=== PATIENT | female | born 1960 | race Caucasian/White ===

== ENCOUNTER 2017-02-14 09:39 | Outpatient (RCR) | payer OTHER ==
[~2017-02-14 09:39] MED LIST: ASPIRIN 32325 MG/TAB PO; BLOOD PRESSURE MED; FORTAMET500 MG PO; PEPCID 20MG TAB20 MG PO
== END 2017-03-13 10:06 | disposition still patient (30) ==
LOC: WSOH 09:39
DX: S57.81XA Crushing injury of right forearm, initial encounter (principal); W23.0XXA Caught, crushed, jammed, or pinched between moving objects, initial encounter; Y99.0 Civilian activity done for income or pay; Z79.84 Long term (current) use of oral hypoglycemic drugs; Z79.52 Long term (current) use of systemic steroids

== ENCOUNTER → 2017-04-10 | Outpatient (CLI) | payer BC | LOC: MHCPAIN 13:54 | DX: G89.29 Other chronic pain (principal); M47.817 Spondylosis without myelopathy or radiculopathy, lumbosacral region; M53.3 Sacrococcygeal disorders, not elsewhere classified; F17.210 Nicotine dependence, cigarettes, uncomplicated | CPT/HCPCS: G0463 ==

== ENCOUNTER → 2017-04-25 | Outpatient (CLI) | payer BC | LOC: MHCPAIN 07:58 | DX: M47.817 Spondylosis without myelopathy or radiculopathy, lumbosacral region (principal); M46.97 Unspecified inflammatory spondylopathy, lumbosacral region ==

== ENCOUNTER → 2017-04-29 | Outpatient (CLI) | payer BC | LOC: COL.CARD 13:57 | DX: Z01.818 Encounter for other preprocedural examination (principal); E21.3 Hyperparathyroidism, unspecified ==

== ENCOUNTER → 2017-05-01 | Outpatient (CLI) | payer BC | LOC: MHCPAIN 08:33 | DX: G89.29 Other chronic pain (principal); M47.27 Other spondylosis with radiculopathy, lumbosacral region; M53.3 Sacrococcygeal disorders, not elsewhere classified; F17.210 Nicotine dependence, cigarettes, uncomplicated | CPT/HCPCS: G0463 ==

== ENCOUNTER → 2017-06-12 | Outpatient (CLI) | payer BC, OTHER | LOC: MHCPAIN 13:44 | DX: G89.29 Other chronic pain (principal); M47.27 Other spondylosis with radiculopathy, lumbosacral region; M53.3 Sacrococcygeal disorders, not elsewhere classified; F17.210 Nicotine dependence, cigarettes, uncomplicated | CPT/HCPCS: G0463 ==

== ENCOUNTER → 2017-06-13 | Outpatient (CLI) | payer BC, OTHER | LOC: MHCPAIN 13:42 | DX: M47.817 Spondylosis without myelopathy or radiculopathy, lumbosacral region (principal) | CPT/HCPCS: J2250; J3010 ==

== ENCOUNTER → 2017-06-14 | Outpatient (CLI) | payer BC, OTHER | LOC: COL.RAD 09:00 | DX: M25.571 Pain in right ankle and joints of right foot (principal) | CPT/HCPCS: J3301; Q9967 ==

== ENCOUNTER → 2017-06-20 | Outpatient (CLI) | payer BC | LOC: MHCPAIN 13:42 | DX: M47.817 Spondylosis without myelopathy or radiculopathy, lumbosacral region (principal) | CPT/HCPCS: J2250; J3010 ==

== ENCOUNTER → 2017-08-19 | Outpatient (CLI) | payer BC | LOC: MHCPAIN 13:52 | DX: G89.29 Other chronic pain (principal); M47.817 Spondylosis without myelopathy or radiculopathy, lumbosacral region; M53.3 Sacrococcygeal disorders, not elsewhere classified; F17.210 Nicotine dependence, cigarettes, uncomplicated | CPT/HCPCS: G0463 ==

== ENCOUNTER → 2017-08-29 | Outpatient (CLI) | payer BC, OTHER | LOC: MHCPAIN 10:54 | DX: M53.3 Sacrococcygeal disorders, not elsewhere classified (principal) | CPT/HCPCS: G0260; J1040; Q9967 ==

== ENCOUNTER → 2017-10-09 | Outpatient (CLI) | payer BC, OTHER | LOC: SUN.DIA 13:48 | DX: E11.9 Type 2 diabetes mellitus without complications (principal); E78.5 Hyperlipidemia, unspecified; E66.9 Obesity, unspecified; Z68.37 Body mass index [BMI] 37.0-37.9, adult; Z71.3 Dietary counseling and surveillance; F17.210 Nicotine dependence, cigarettes, uncomplicated | CPT/HCPCS: G0108 ==

== ENCOUNTER → 2017-11-09 | Outpatient (REF) | LOC: ZLAB.WCH 12:06 | DX: Z01.89 Encounter for other specified special examinations (principal) ==

== ENCOUNTER → 2017-11-29 | Outpatient (CLI) | payer BC | LOC: MHCPAIN 11:23 | DX: G89.29 Other chronic pain (principal); M47.817 Spondylosis without myelopathy or radiculopathy, lumbosacral region; M54.16 Radiculopathy, lumbar region; M53.3 Sacrococcygeal disorders, not elsewhere classified | CPT/HCPCS: G0463 ==

== ENCOUNTER → 2017-12-12 | Outpatient (CLI) | payer BC | LOC: MHCPAIN 12:58 | DX: M53.3 Sacrococcygeal disorders, not elsewhere classified (principal) | CPT/HCPCS: G0260; J1040; Q9967 ==

== ENCOUNTER → 2018-04-17 | Outpatient (CLI) | payer BC | LOC: MHCPAIN 09:29 | DX: M47.817 Spondylosis without myelopathy or radiculopathy, lumbosacral region (principal); M54.16 Radiculopathy, lumbar region ==

== ENCOUNTER → 2018-04-24 | Outpatient (CLI) | payer BC | LOC: MHCPAIN 09:12 | DX: M47.817 Spondylosis without myelopathy or radiculopathy, lumbosacral region (principal); M54.16 Radiculopathy, lumbar region | CPT/HCPCS: G0463; J1100; J2250; J3010 ==

== ENCOUNTER → 2018-04-28 | Outpatient (CLI) | payer BC | LOC: MHCPAIN 10:47 | DX: M47.817 Spondylosis without myelopathy or radiculopathy, lumbosacral region (principal); M54.16 Radiculopathy, lumbar region | CPT/HCPCS: J2250; J3010 ==

== ENCOUNTER → 2018-10-31 | Outpatient (REF) | LOC: ZLAB.WCH 15:37 | DX: Z01.89 Encounter for other specified special examinations (principal) ==

== ENCOUNTER → 2020-08-24 | Outpatient (CLI) | payer OTHER | LOC: MHCPAIN 08:49 | DX: M47.816 Spondylosis without myelopathy or radiculopathy, lumbar region (principal); M53.3 Sacrococcygeal disorders, not elsewhere classified; G89.29 Other chronic pain; E11.9 Type 2 diabetes mellitus without complications; Z79.4 Long term (current) use of insulin | CPT/HCPCS: G0463 ==

== ENCOUNTER 2020-12-02 10:30 | Outpatient (RCR) | payer SELFPAY | END 2020-12-02 12:12 | disposition home or self-care (01) | LOC: WSC 10:30 | DX: M47.896 Other spondylosis, lumbar region (principal) ==

== ENCOUNTER → 2021-03-28 | Outpatient (CLI) | payer SELFPAY | LOC: COL.RAD 11:06 | DX: Z02.71 Encounter for disability determination (principal); M43.8X6 Other specified deforming dorsopathies, lumbar region; M47.816 Spondylosis without myelopathy or radiculopathy, lumbar region; M48.07 Spinal stenosis, lumbosacral region ==

== ENCOUNTER → 2021-06-19 | Outpatient (CLI) | payer MEDICAID | LOC: MHCPAIN 09:44 | DX: M47.817 Spondylosis without myelopathy or radiculopathy, lumbosacral region (principal); M54.50 Low back pain, unspecified; M53.3 Sacrococcygeal disorders, not elsewhere classified | CPT/HCPCS: G0463 ==

== ENCOUNTER → 2021-07-06 | Outpatient (CLI) | payer MEDICAID | LOC: MHCPAIN 07:44 | DX: M47.817 Spondylosis without myelopathy or radiculopathy, lumbosacral region (principal); M54.50 Low back pain, unspecified; M53.3 Sacrococcygeal disorders, not elsewhere classified ==

== ENCOUNTER → 2021-08-03 | Outpatient (CLI) | payer MEDICAID | LOC: MHCPAIN 10:11 | DX: M47.817 Spondylosis without myelopathy or radiculopathy, lumbosacral region (principal); M54.50 Low back pain, unspecified; M53.3 Sacrococcygeal disorders, not elsewhere classified | CPT/HCPCS: J2250; J3010 ==

== ENCOUNTER → 2021-09-26 | Outpatient (CLI) | payer MEDICAID | LOC: MHCPAIN 09:10 | DX: M53.3 Sacrococcygeal disorders, not elsewhere classified (principal); M54.50 Low back pain, unspecified; E11.65 Type 2 diabetes mellitus with hyperglycemia; Z79.4 Long term (current) use of insulin | CPT/HCPCS: G0463 ==

== ENCOUNTER → 2022-01-02 | Outpatient (CLI) | payer MEDICAID | LOC: MHCPAIN 09:51 | DX: M54.50 Low back pain, unspecified (principal); M53.3 Sacrococcygeal disorders, not elsewhere classified; E11.9 Type 2 diabetes mellitus without complications; Z79.4 Long term (current) use of insulin | CPT/HCPCS: G0463 ==

== ENCOUNTER → 2023-02-19 | Outpatient (CLI) | payer MEDICAID, MEDICARE | LOC: COL.RAD 07:47 | DX: K21.9 Gastro-esophageal reflux disease without esophagitis (principal) | CPT/HCPCS: A9541-JZ ==

== ENCOUNTER → 2023-02-20 | Outpatient (CLI) | payer MEDICARE, MEDICAID | LOC: COL.RAD 10:06 | DX: K21.9 Gastro-esophageal reflux disease without esophagitis (principal) ==

== ENCOUNTER 2023-03-14 15:43 | Inpatient (IN) | payer MEDICARE, MEDICAID ==
[2023-03-14] VITALS (228 sets, daily range): BP systolic 76–109; BP diastolic 47–86; PULSE 78–142; TEMP 97.7; O2SAT 87–98
[~2023-03-14] VITALS: Ht 162.6 cm; Wt 92.2 kg
[2023-03-14 17:18] LABS: BASO # 0.1 K/mm3 (0.0-0.2); BASO % 0.8 % (0.0-2.0); EOS # 0.1 K/mm3 (0.0-0.7); EOS % 0.9 % (0.0-4.0); GRAN # 8.2 K/mm3 (1.4-6.5); HEMATOCRIT 48.6 % (37.0-47.0); HEMOGLOBIN 16.5 g/dl (12.5-16.0); LYMPH # 4.1 K/mm3 (1.2-3.4); LYMPH % 30.5 % (20.0-51.0); MEAN CELL VOLUME 91 fl (80.0-100.0); MEAN CORPUSCULAR HEMOGLOBIN 31 pg (27-31); MEAN CORPUSCULAR HGB CONC 34 g/dl (33.0-37.0); MEAN PLATELET VOLUME 10.3 fl (7.4-10.4); MONO # 0.7 K/mm3 (0.1-0.6); MONO % 5.3 % (1.7-9.3); PLATELET COUNT 344 K/mm3 (130-400); RED BLOOD COUNT 5.37 M/mm3 (4.10-5.30); REDCELL DISTRIBUTION WIDTH-CV 12.7 % (11.5-14.5)
[2023-03-14 17:33] LABS: ALANINE AMINOTRANSFERASE 25 U/L (0-55); ALKALINE PHOSPHATASE 142 U/L (40-150); ANION GAP 13 mmol/L (7-16); AST,SGOT 15 U/L (5-34); BILIRUBIN,TOTAL 0.6 mg/dL (0.2-1.2); BLOOD UREA NITROGEN 18 mg/dL (10-20); CALCIUM 9.3 mg/dL (8.4-10.2); CARBON DIOXIDE 19 mmol/L (23-31); CHLORIDE 105 mmol/L (98-107); CREATININE, serum 1.12 mg/dL (0.57-1.11); GLUCOSE 345 mg/dL (70-99); POTASSIUM 3.6 mmol/L (3.5-4.5); SODIUM 137 mmol/L (136-145); TOTAL PROTEIN 7.3 gm/dL (6.2-8.1)
[2023-03-14 17:46] LABS: TROPONIN-I < 0.010 ng/mL (0.00-0.033)
[2023-03-14] MEDS ORDERED: PRISTIQ100 MG PO (19:25)
[2023-03-14] MEDS ORDERED: FARXIGA5 PO (19:26)
[2023-03-14] MEDS ORDERED: MOUNJARO5 MG/0.5 M SQ (19:26)
[2023-03-14] MEDS ORDERED: BUSPAR5 MG PO (19:27)
[2023-03-14] MEDS ORDERED: PROTONIX 40MG T40 MG PO (19:27)
[2023-03-14] MEDS ORDERED: PRINIVIL10 MG PO (19:28)
[2023-03-14] MEDS ORDERED: NEURONTIN300 MG/CAP PO (19:28)
[2023-03-14] MEDS ORDERED: LIPITOR 40MG TA40 MG PO (19:28)
--- NOTE | 2023-03-14 19:46 | NUR ---
PATIENT TRANSFERRED TO ICU VIA COT ACCOMPANIED BY ED RN AND FRIEND. PATIENT WAS NOT IN DISTRESS AND HAD CARDIZEM INFUSING AT THIS TIME. PATIENT AMBULATED TO ICU BED WITHOUT ASSISTANCE.
--- NOTE | 2023-03-14 21:33 | NUR ---
PATIENT HAS REMAINED INTERMITTENTLY TACHYCARDIC SINCE TRANSFER. PATIENT IS NOT IN DISTRESS AND STATES THAT SHE DOES NOT FEEL SYMPTOMATIC EXPECT FOR, "I OCCASSIONALLY FEEL LIKE I HAVE SOME CHEST CONJESTION". PATIENT HAS BEEN EDUCATED ON DIAGNOSES AND CARDIZEM GTT. PATIENT DESCRIBED WHAT LED HER TO ADMISSION - "I WAS AT [facility] TO REVIEW SOME TEST RESULTS REGARDING MY ACID REFLUX ISSUES I'VE BEEN HAVING AND THEY SAID MY HEART WAS RACING SO THEY SENT ME TO MY PRIMARY CARE DOCTOR FOR AN EKG". BED IS IN LOW POSITION AND CALL LIGHT IS WITHIN REACH. NO LINGERING QUESTIONS OR CONCERNS AT THIS TIME.
--- NOTE | 2023-03-14 21:43 | NUR ---
PATIENT WAS ADVISED TO LOCK PERSONAL ITEMS UP WITH SECUIRTY BUT REFUSED. CLOTHES, GLASSES, PHONE, PURSE AND KEYS AT BEDSIDE PER REQUEST.
[2023-03-15] VITALS (933 sets, daily range): BP systolic 85–134; BP diastolic 52–86; PULSE 52–118; TEMP 97.8–98.1; O2SAT 69–100
[2023-03-15 04:35] LABS: BASO # 0.1 K/mm3 (0.0-0.2); BASO % 0.6 % (0.0-2.0); EOS # 0.1 K/mm3 (0.0-0.7); EOS % 1.3 % (0.0-4.0); GRAN # 5.1 K/mm3 (1.4-6.5); GRAN % 46.3 % (42.2-75.2); HEMATOCRIT 43.4 % (37.0-47.0); HEMOGLOBIN 14.8 g/dl (12.5-16.0); MEAN CELL VOLUME 90 fl (80.0-100.0); MEAN CORPUSCULAR HEMOGLOBIN 31 pg (27-31); MEAN CORPUSCULAR HGB CONC 34 g/dl (33.0-37.0); MEAN PLATELET VOLUME 9.7 fl (7.4-10.4); MONO # 0.6 K/mm3 (0.1-0.6); MONO % 5.3 % (1.7-9.3); PLATELET COUNT 253 K/mm3 (130-400); RED BLOOD COUNT 4.85 M/mm3 (4.10-5.30); REDCELL DISTRIBUTION WIDTH-CV 12.7 % (11.5-14.5)
[2023-03-15 04:41] LABS: CALCIUM 8.7 mg/dL (8.4-10.2); CREATININE, serum 0.82 mg/dL (0.57-1.11); MAGNESIUM 1.9 mg/dL (1.6-2.6)
[2023-03-15 09:51] LABS: INR 1.2 (0.8-3.0); PROTHROMBIN TIME 12.8 SECONDS (9.7-12.8)
[2023-03-15] MEDS ORDERED: TYLENOL 500MG500 MG PO (10:04)
[2023-03-15] MEDS ORDERED: TUMS500 MG PO (10:04)
--- NOTE | 2023-03-15 10:55 | NUR ---
ANCILLARY SPECIALIST reviewed pt's clinical record and noted she was admitted to ICU for AFIB with RVR, ANCILLARY SPECIALIST met with pt @ the bedside to complete an intake this morning. Pt was sitting up in bed, pleasant, oriented to person, time, place, situation and anxious to go home. Pt reports she is independent in her ADL's/IADL's and ambulates without assistive devices. However, she shared she experienced a fall on 01/15. Stated she blacked out, fell in the bathtub and badly bruised her face. She went to the ER and was treated and sent home. Pt reports she lives alone and has 2 sons, who live nearby, one in [place] and the other in [place]. Pt reports her primary care provider is RICARDO Caputo, ph# [phone] and she fills her prescriptions at the [facility]. ANCILLARY SPECIALIST asked pt if she had a HCPOA, and pt stated she did not, but expressed interest in obtaining information so she can discuss with her son.Advance Pt does not anticipate a need for outpt services @ home. She anticipates being discharge later today. No other concerns noted.
--- NOTE | 2023-03-15 16:21 | NUR ---
WILLIAM AND CARDIOVERSION DONE BY DR BAZAN AT 1254. PT TOLERATED WELL, VSS. PT ABLE TO EAT AND DRINK LUNCH AFTER PROCEDURE AND WALKS TO TOILET W/ STANDBY ASSISTANCE ONLY.
--- NOTE | 2023-03-15 19:40 | NUR ---
PATIENT WAS TRANSFERRED TO MEDICAL UNIT ROOM 352 AT THIS TIME. TAKEN IN WHEELCHAIR ACCOMPANIED BY MEDICAL COLLECTIONS. MEDICAL RN, HANNAH, MET IN PATIENT ROOM. PATIENT REPORT CALLED TO NURSE PRIOR TO ARRIVAL. PATIENT NOT IN DISTRESS UPON TRANSFER AND ABLE TO AMBULATE TO BED. PATIENT FRIEND AT BEDSIDE WELL.
--- NOTE | 2023-03-15 21:00 | NUR ---
SHIFT ASSESSMENT COMPLETE. PATIENT SITTING UP IN BED WATCHING TV. VSS. NIGHT MEDS GIVEN ORDERED. PATIENT HAS NO REQUEST OR COMPLAINTS AT THIS TIME. CALL LIGHT IN REACH.
[2023-03-16] VITALS (7 sets, daily range): BP systolic 94–124; BP diastolic 45–74; PULSE 49–93; TEMP 97.6–99
--- NOTE | 2023-03-16 03:10 | NUR ---
PATIENT REQUESTED RT AC INT TO BE REMOVED DUE TO IT BEING REALLY PAINFUL. NEW IV PLACED IN LFT FOREARM. PATIENT TOLERATED WELL.
[2023-03-16 07:15] LABS: HEMOGLOBIN 13.4 g/dl (12.5-16.0); MEAN CELL VOLUME 90 fl (80.0-100.0); MEAN CORPUSCULAR HEMOGLOBIN 30 pg (27-31); MEAN CORPUSCULAR HGB CONC 34 g/dl (33.0-37.0); MEAN PLATELET VOLUME 9.8 fl (7.4-10.4); PLATELET COUNT 236 K/mm3 (130-400); RED BLOOD COUNT 4.43 M/mm3 (4.10-5.30); REDCELL DISTRIBUTION WIDTH-CV 12.7 % (11.5-14.5)
--- NOTE | 2023-03-16 07:37 | NUR ---
Bedside report recieved from [facility]. Pt is currently sleeping in bed with no complaints. Call light within reach.
[2023-03-16 07:39] LABS: ALBUMIN 3.2 gm/dL (3.4-4.8); CALCIUM 8.8 mg/dL (8.4-10.2); CREATININE, serum 0.82 mg/dL (0.57-1.11); PHOSPHOROUS 3.9 mg/dL (2.3-4.7)
--- NOTE | 2023-03-16 11:26 | NUR ---
Pharmaceutical Operator rounds: Pharmaceutical Operator services declined. Patient started to hang up a phone call. Pharmaceutical Operator encouraged her to remain on the phone. Pharmaceutical Operator provided a college newspaper. Patient stated she was going to watch the [employer] game while she waited to speak with Doctor.
--- NOTE | 2023-03-16 18:34 | NUR ---
Pt had uneventful day this shift. Pt has been in pleasant mood and has had no complaints. Shift assessment completed, VSS. Telmetry in place. Call light within reach and fall precautions in place.
--- NOTE | 2023-03-16 20:00 | NUR ---
Patient sitting in chair. Denies any pain or needs at this time. Assessment complete. IV in left forearm flushes easily with no complications. Call light and personal items in reach. Bed in low position.
--- NOTE | 2023-03-16 23:17 | NUR ---
Notified by Tele of heart rate in the mid 40s. Vital signs obtained. Hospitalist notified. No new orders at this time.
--- NOTE | 2023-03-17 01:27 | NUR ---
Patient care, medication administration and nursing documentation occurred during a Daylight Savings Time Change.
[2023-03-17 03:04] VITALS: BP 104/54; PULSE 53; TEMP 97.7
--- NOTE | 2023-03-17 06:30 | NUR ---
Patient resting in bed. Respirations even and unlabored. No signs of pain at this time. Call light and personal items in reach. Bed in low position
[2023-03-17 07:45] VITALS: BP 110/63; PULSE 51; TEMP 97.5
[2023-03-17] MEDS ORDERED: ELIQUIS 5MG PO (08:39)
[2023-03-17] MEDS ORDERED: BETAPACE 80MG80 MG PO (08:39)
--- NOTE | 2023-03-17 10:34 | NUR ---
Assessment completed earlier in shift. Resting in bed, watching tv. Denies pain or needs at this time. Discharge orders received.
[2023-03-17 11:31] VITALS: BP 118/66; PULSE 49; TEMP 97.9
--- NOTE | 2023-03-17 14:16 | NUR ---
Discharge instructions reviewed with patient- verbalizes understanding. Tele d/c'd. INT d/c'd with cath tip intact. Pt escorted to private vehcile via w/c and discharged home with spouse.
== END 2023-03-17 14:17 | disposition home or self-care (01) | DRG 310 ==
LOC: COL.ER 15:43 → ICU 18:39 → MEDICAL 03-15 19:18
PROVIDERS: Internal Medicine; Personal Emergency Response Attendant; Physician Assistant; ADMIT Internal Medicine
PROC: 5A2204Z Restoration of Cardiac Rhythm, Single (ICD-10-PCS; principal; 2023-03-14)
DX: I48.91 Unspecified atrial fibrillation (principal); Z79.01 Long term (current) use of anticoagulants; I95.9 Hypotension, unspecified; I10 Essential (primary) hypertension; E11.9 Type 2 diabetes mellitus without complications; Z79.4 Long term (current) use of insulin; Z72.0 Tobacco use
CPT/HCPCS: J1650; J1815; J2704; J3475; J7030; J7120

== ENCOUNTER → 2023-04-12 | Outpatient (CLI) | payer MEDICARE, MEDICAID ==
[~2023-04-12] MED LIST changes: +BETAPACE 80MG80 MG PO; +BUSPAR5 MG PO; +ELIQUIS 5MG PO; +FARXIGA5 PO; +LIPITOR 40MG TA40 MG PO; +MOUNJARO5 MG/0.5 M SQ; +NEURONTIN300 MG/CAP PO; +PRINIVIL10 MG PO; +PRISTIQ100 MG PO; +PROTONIX 40MG T40 MG PO; +TUMS500 MG PO; +TYLENOL 500MG500 MG PO
== END ==
LOC: COL.RAD 08:47
DX: C7A.8 Other malignant neuroendocrine tumors (principal)
CPT/HCPCS: Q9967

== ENCOUNTER → 2024-01-15 | Outpatient (CLI) | payer MEDICARE, MEDICAID | LOC: MHCPAIN 09:46 | DX: M51.26 Other intervertebral disc displacement, lumbar region (principal); M47.817 Spondylosis without myelopathy or radiculopathy, lumbosacral region; E11.9 Type 2 diabetes mellitus without complications; Z79.84 Long term (current) use of oral hypoglycemic drugs | CPT/HCPCS: G0463 ==

== ENCOUNTER → 2024-01-23 | Outpatient (CLI) | payer MEDICARE, MEDICAID | LOC: COL.RAD 14:25 | DX: M51.16 Intervertebral disc disorders with radiculopathy, lumbar region (principal); M47.26 Other spondylosis with radiculopathy, lumbar region; M51.17 Intervertebral disc disorders with radiculopathy, lumbosacral region; M48.061 Spinal stenosis, lumbar region without neurogenic claudication ==

== ENCOUNTER → 2024-02-06 | Outpatient (CLI) | payer MEDICARE, MEDICAID ==
[~2024-02-06] MED LIST changes: +Iohexol 300 - 10 ML VIAL ONE; +Lidocaine PF 2% (20 MG/ML) 2 ML VIAL ONE
== END ==
LOC: MHCPAIN 10:08
DX: M54.16 Radiculopathy, lumbar region (principal)
CPT/HCPCS: J1100; Q9967

== ENCOUNTER → 2024-02-26 | Outpatient (CLI) | payer MEDICARE, MEDICAID ==
[~2024-02-26] MED LIST changes: -Iohexol 300 - 10 ML VIAL ONE; -Lidocaine PF 2% (20 MG/ML) 2 ML VIAL ONE
== END ==
LOC: MHCPAIN 10:19
DX: M51.27 Other intervertebral disc displacement, lumbosacral region (principal); M48.061 Spinal stenosis, lumbar region without neurogenic claudication; E11.9 Type 2 diabetes mellitus without complications; Z79.4 Long term (current) use of insulin; M53.3 Sacrococcygeal disorders, not elsewhere classified
CPT/HCPCS: G0463